=== PATIENT | female | born 1975 | race Caucasian/White ===

== ENCOUNTER 2016-07-07 04:14 | Emergency (ER) | payer MEDICAID ==
[2016-07-07 04:23] VITALS: BP 138/85; PULSE 92; RESP 16; TEMP 97.5; O2SAT 96
--- NOTE | 2016-07-07 04:52 | EDPHY ---
H & P Stated Complaint: c/o open sores related to iv drug use on bilat arms, bedbug lesions legs Time Seen by Provider: 07/07/16 04:36 HPI/ROS: HPI The patient presents with rash to her arms and neck which has been present for the last several years, though now she feels is associated with bug bites over the last 3 weeks. She says she is being bitten by small bugs at her house and is convinced she has bed bugs. She lives with her mother who does not ever see any of these bugs and does not have any similar symptoms. She says she sees them crawling out of her skin and jumping out of her hair. She says she has intense itching caused because of these. She has been dealing with intermittent similar symptoms for years. She is followed at [facility].. REVIEW OF SYSTEMS Constitutional: No fever, no chills. Eyes: No discharge. Skin: See HPI Neurological: No headache. PMHx: Hepatitis B and C Soc Hx: Chronic heroin use and methamphetamine use, Lives in [place] with her mother, visiting friends in [place]. PHYSICAL General Appearance: Alert, anxious appearing Eyes: Pupils equal and round no pallor or injection ENT, Mouth: Mucous membranes moist Respiratory: There are no retractions, lungs are clear to auscultation Cardiovascular: Regular rate and rhythm Gastrointestinal: Abdomen is soft and non-tender, no masses, bowel sounds normal Neurological: A&O, moves all extremities Skin: Scars throughout her neck and arms from IV drug use, she has open ulcerations on the posterior surfaces of both of her forearms which have well- healing granulation tissue with mild surrounding erythema without any warmth, drainage, tenderness Musculoskeletal: Neck is supple non tender Extremities: symmetrical, full range of motion Psychiatric: Patient is oriented X 3, there is no agitation Source: Patient Exam Limitations: No limitations - Medical/Surgical History Hx Asthma: No Hx Chronic Respiratory Disease: No Hx Diabetes: No Hx Cardiac Disease: No Hx Renal Disease: No Hx Cirrhosis: No Hx Alcoholism: No Hx HIV/AIDS: No Hx Splenectomy or Spleen Trauma: No Other PMH: iv drug use, hep b/c, surg to bilat arms - Social History Smoking Status: Current every day smoker Constitutional: Initial Vital Signs Temperature (C) 36.4 C 07/07/16 04:18 Heart Rate 92 07/07/16 04:18 Respiratory Rate 16 07/07/16 04:18 Blood Pressure 138/85 H 07/07/16 04:18 O2 Sat (%) 96 07/07/16 04:18 O2 Delivery Mode Room Air Allergies/Adverse Reactions: No Known Allergies Allergy (Unverified 07/07/16 04:23) Home Medications: Medication Instructions Recorded NK [No Known Home Meds] 07/07/16 Medical Decision Making Differential Diagnosis: This is a 40-year-old female with history of IV heroin use and methamphetamine abuse who presents with concern for bedbugs because of visualization of bugs on her skin and hair. On exam, I do not see any of these bugs, however the patient is convinced that they are present. She is picking at her skin and I feel this is the cause of most of her symptoms. The ulcerations on her forearms appear old and are well healing. There are no signs of secondary bacterial infection. I have instructed her to stop amphetamine use and this may improve her symptoms. She is convinced that amphetamine is not causing any of this. I do not think she would benefit from antibiotics. I have discussed with her the treatment for bedbugs. She will be discharged from the emergency room. Differential diagnosis includes delusional parasitosis, methamphetamine abuse, chronic ulcerations. Departure - Departure Disposition: Home, Routine, Self-Care Clinical Impression: Delusions of parasitosis, Amphetamine abuse, IVDU (intravenous drug user), Open arm wound Condition: Good Instructions: Methamphetamine Abuse (ED) Additional Instructions: I encourage you to stop using drugs to see if this improves her symptoms. Referrals: [facility] [Outside] - As per Instructions
== END 2016-07-07 05:04 | disposition home or self-care (01) ==
DX: F22 Delusional disorders (principal); F15.10 Other stimulant abuse, uncomplicated; F19.10 Other psychoactive substance abuse, uncomplicated; S41.102A Unspecified open wound of left upper arm, initial encounter; S41.101A Unspecified open wound of right upper arm, initial encounter; F17.200 Nicotine dependence, unspecified, uncomplicated; W57.XXXA Bitten or stung by nonvenomous insect and other nonvenomous arthropods, initial encounter; Y92.009 Unspecified place in unspecified non-institutional (private) residence as the place of occurrence of the external cause